=== PATIENT | male | born 1955 ===

== ENCOUNTER → 2019-01-06 | Outpatient (CLI) | payer OTHER ==
[2019-01-06 13:13] LABS: Body Fluid Crystals NEG (NEGATIVE)
== END | disposition home or self-care (01) ==
LOC: LAB SHORT 12:39 → LAB 12:39
PROVIDERS: Physician Assistant
DX: L08.9 Local infection of the skin and subcutaneous tissue, unspecified (principal); M25.561 Pain in right knee
CPT/HCPCS: 87070; 87075; 87205; 89060